=== PATIENT | female | born 1970 | race Two or more races ===

== ENCOUNTER → 2019-10-26 | Outpatient (CLI) | payer OTHER | END | disposition home or self-care (01) | LOC: RAD 14:50 | DX: R05 Cough (principal) ==

== ENCOUNTER 2024-05-11 21:51 | Emergency (ER) | payer OTHER ==
[~2024-05-11] VITALS: Ht 152.4 cm; Wt 68.9 kg
[2024-05-11] MEDS ORDERED: LEVOTHYROXINE25 MCG PO (21:58)
[2024-05-11] MEDS ORDERED: METHYLPREDNISOLONE SOD SUCC 125 MG VIAL IV ONE (22:15)
[2024-05-11] MEDS ORDERED: GUAIFENESIN/DEXTROMETHORPHAN 10ML BLIST.PACK PO ONE (22:15)
[2024-05-11] MEDS ORDERED: LEVALBUTEROL HCL 1.25 MG/3 ML SOLUTION IH SCH (22:15)
[2024-05-11] MEDS ORDERED: LEVALBUTEROL HCL 1.25 MG/3 ML SOLUTION IH ONE (22:19)
[2024-05-11] MEDS ORDERED: METHYLPREDNISOLONE SOD SUCC 125 MG VIAL ONE (22:32)
[2024-05-11] MEDS ORDERED: GUAIFENESIN/DEXTROMETHORPHAN 5ML BLIST.PACK PO ONE (22:32)
[2024-05-11 23:08] LABS: HEMATOCRIT 38.7 % (36.0-45.00); HEMOGLOBIN 13.5 g/dL (12.0-15.00); MEAN CELL VOLUME 90.4 fL (80.00-100.00); MEAN CORPUSCULAR HEMOGLOBIN 31.5 pg (27.00-32.0); MEAN CORPUSCULAR HGB CONC 34.8 g/dl (32.0-36.0); PLATELET COUNT 355 K/uL (150-450); RED BLOOD COUNT 4.28 M/uL (4.00-6.00); RED CELL DISTRIBUTION WIDTH 14.2 % (11.5-14.5)
[2024-05-11 23:27] LABS: ALBUMIN 3.6 gm/dL (3.4-5.0); BILIRUBIN TOTAL 0.16 mg/dL (0.3-1.2); CALCIUM 9.2 mg/dL (8.5-10.1); CREATININE SERUM 0.89 mg/dL (0.55-1.02); GFR 66.6; GLOBULINA 4.3 G/DL (2.4-3.5); POTASSIUM 3.86 mEq/L (3.5-5.1); TOTAL PROTEIN 7.9 gm/dL (6.4-8.2)
[2024-05-11] MEDS ORDERED: HYDROCODONE/CHLORPHEN P-STIREX 5 ML ML PO ONE (23:45)
[2024-05-12] MEDS ORDERED: MEDROLPACK PO (00:17)
[2024-05-12] MEDS ORDERED: ZITHROMAX500 MG PO (00:17)
[2024-05-12] MEDS ORDERED: TUSNEL LIQUID178 ML PO (00:17)
[2024-05-12] MEDS ORDERED: XOPENEX CO1.25 MG/0. IH (00:17)
== END 2024-05-12 00:26 | disposition home or self-care (01) ==
LOC: ER 21:53
PROVIDERS: General Practice
DX: J06.9 Acute upper respiratory infection, unspecified (principal); Z20.822 Contact with and (suspected) exposure to COVID-19